=== PATIENT | male | born 1945 | race Caucasian/White ===

== ENCOUNTER 2018-06-22 17:01 | Inpatient (IN) ==
[2018-06-22] MEDS ORDERED: ASPIRIN PO ONE (17:12)
--- NOTE | 2018-06-22 17:29 | ED EKG INTERP ---
This chart was entered by Anastasiia Sanches Scribe, acting as scribe for Rey Alexander MD. EKG Interpretation - EKG Time of EKG reading by physician:: 17:14 EKG Read and Signed by:: Rey Alexander EKG Interpretation (*Must complete 3 of following elements*): Abnormal Rate: 59 Rhythm: sinus bradycardia Comments: otherwise normal ECG Attestation - Physician/ ANNIKA Attestation The physician spent face to face time with patient:: No Advanced Practice Provider documentation review:: Supervising physician onsite and consulted in the evaluation and care of this patient. The physician did not have a face to face encounter with the patient. This chart was documented by the indicated scribe, (Anastasiia Sanches Scribe) and accurately reflects the services I performed and decisions made by me, Rey Alexander MD, as attested by the provider's signature.
--- NOTE | 2018-06-22 17:53 | Diag Imaging Result Doc PS360 ---
CHEST-2 VIEWS - 06/22/2018 INDICATION: CHEST PAIN COMPARISON: None FINDINGS: The lungs are normally expanded and clear. Heart size and mediastinal contours are normal. No pneumothorax or pleural effusion. IMPRESSION: Negative exam. Electronically signed by Mayito Caraballo 06/22/2018 5:51 PM
[2018-06-22 19:24] LABS: BASO# 0.11 X1000 (0.0-0.2); EOS# 0.16 X1000 (0.0-0.7); EOS% 1.5 % (0.0-10.0); HEMATOCRIT 45.3 % (42.0-52.0); HEMOGLOBIN 14.8 g/dL (14.0-18.0); IMM GRAN# 0.02 X1000 (0.0-0.04); IMM GRAN% 0.2 % (0.0-0.5); LYMPH# 4.59 X1000 (1.2-3.4); LYMPH% 42.5 % (20.5-51.1); MCH 30.6 PG (27-31); MCHC 32.7 g/dL (33-37); MCV 93.6 FL (81-99); MONO# 0.98 X1000 (0.11-0.59); MONO% 9.1 % (1.7-9.3); MPV 10.9 FL (7.4-10.4); NEUT# 4.95 X1000 (1.4-6.5); NEUT% 45.7 % (42.2-75.2); PLT 270 X1000 (130-400); RBC 4.84 XMIL (4.7-6.1); RDW 13.3 % (11.5-14.5); WBC 10.81 X1000 (4.8-10.8)
[2018-06-22 19:34] LABS: INR 0.93; PROTIME 13.2 Seconds (11.0-16.0)
[2018-06-22 19:35] LABS: PTT 34.4 Seconds (22.3-41.8)
[2018-06-22 19:37] LABS: D-DIMER 0.61 ug/mLFEU (0.0-0.52)
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
[2018-06-22 19:53] LABS: ALB/GLOB RATIO 1.4; ALBUMIN 4.4 g/dL (3.5-5.0); CALCIUM 9.5 mg/dL (8.8-10.2); CREATININE 1.2 mg/dL (0.7-1.2); POTASSIUM 4.4 mmol/L (3.5-5.1); TOTAL BILIRUBIN 0.37 mg/dL (0.20-1.00); TOTAL PROTEIN 7.6 g/dL (6.3-8.3)
[2018-06-22] MEDS ORDERED: NITROGLYCERIN TOP ONE (20:23)
[2018-06-22] MEDS ORDERED: ZOFRAN IV PRN (21:10)
[2018-06-22] MEDS ORDERED: LOVENOX SUBQ SCH (21:15)
--- NOTE | 2018-06-22 22:02 | Diag Imaging Result Doc PS360 ---
CT ANGIOGRM PULMONARY ARTERIES - 06/22/2018 INDICATION: sob,elevated d-dimer TECHNIQUE: Axial CT images were obtained after administering intravenous contrast. Coronal MIP images were generated. COMPARISON: None FINDINGS: There is no pulmonary embolism. There is mild to moderate calcification of the aortic valve cusps. Heart size is normal with no pericardial effusion. Upper abdominal images are normal. The lungs are clear. There are moderate degenerative changes of the spine. No acute or suspicious bony lesion. IMPRESSION: Negative exam. This exam was performed using automated exposure control, adjustment of mA or kV according to patient size, and/or use of iterative reconstruction technique Electronically signed by Mayito Caraballo 06/22/2018 10:00 PM
[2018-06-23 07:19] LABS: BASO% 1.1 % (0.0-0.8); EOS# 0.24 X1000 (0.0-0.7); EOS% 2.8 % (0.0-10.0); HEMATOCRIT 43.1 % (42.0-52.0); IMM GRAN# 0.02 X1000 (0.0-0.04); IMM GRAN% 0.2 % (0.0-0.5); LYMPH# 2.95 X1000 (1.2-3.4); LYMPH% 33.9 % (20.5-51.1); MCH 30.6 PG (27-31); MCHC 32.5 g/dL (33-37); MCV 94.3 FL (81-99); MONO# 0.82 X1000 (0.11-0.59); MONO% 9.4 % (1.7-9.3); MPV 10.4 FL (7.4-10.4); NEUT# 4.57 X1000 (1.4-6.5); NEUT% 52.6 % (42.2-75.2); PLT 242 X1000 (130-400); RBC 4.57 XMIL (4.7-6.1); RDW 13.2 % (11.5-14.5)
--- NOTE | 2018-06-23 07:37 | HISTORY AND PHYSICAL ---
PRIMARY CARE PHYSICIAN: Dr. Cas Robledo. PRESENTING COMPLAINT: Chest pain for 2 weeks. HISTORY OF PRESENTING COMPLAINT: Mr. Benoit is a 72-year-old male with history of mildly elevated blood pressure every now and then but patient is not on any medications. Otherwise, he does not have any other chronic comorbidities. The patient has been having on and off midsternum chest pain radiating to the left for the past 2 weeks. According to Mr. Benoit, the pain is there almost all the time on the scale of about 4/10. However, whenever he exerts himself, the pain goes up to about 7/10. When he stops exerting himself, the pain goes down. He also took some Tylenol, which seems to have been helping some. For the past 3 days, the pain has been getting remarkably worse, so he came to the emergency department for evaluation. He recalls 1 episode where he felt dizzy and nauseated but did not vomit. Upon presenting to the emergency department patient was evaluated. Initial blood pressure was 182/86, pulse 64, respirations 20, temperature 98.4 degrees. We have been advised to evaluate and admit for chest pain workup. PAST MEDICAL HISTORY: Occasionally elevated blood pressure, but not on medications. PAST SURGICAL HISTORY: 1. Lumbar spine surgery. 2. Right elbow surgery. 3. Left hernia repair. FAMILY HISTORY: Significant for father at age 64 with myocardial infarction. A brother at age 74 with myocardial infarction. SOCIAL HISTORY: Patient is an active smoker, has been smoking about 7 cigarettes per day for over 40 years. Occasionally also drinks alcohol. Denies any illicit drug use. ALLERGIES: Penicillin that makes him break out in a rash. REVIEW OF SYSTEMS: A 14 point review of system was conducted with Mr. Benoit and unremarkable except what we have in the HPI. Specifically, he denies any cough. No shortness of breath. No sputum production. No diarrhea. No urinary symptoms. PHYSICAL EXAMINATION: VITAL SIGNS: Blood pressure is 156/80, pulse is 51, respiration is 16, temperature is 98.4 degrees. GENERAL: Mr. Benoit is a 72-year-old male, very well built and cooperative. He was in bed, in no distress. HEENT: Mucosa is pink and moist. Anicteric, acyanotic. Head is normocephalic and atraumatic. NECK: Supple. RESPIRATORY SYSTEM: There is good air entry bilaterally. No crepitations. No rhonchi. There is no accessory muscle use. CARDIOVASCULAR: Regular rate and rhythm. No murmurs, no rubs, no gallops. GI: Abdomen is soft. It is nontender. Bowel sounds are present. There is no hepatosplenomegaly. EXTREMITIES: No pedal edema. Distal pulses present. INTERPRETER AND TRANSLATOR: Patient is awake, alert, oriented. Executive function seems to be intact. Cranial nerves 2- 12 have been grossly examined and they are unremarkable. Motor is 5/5 in all extremities. Sensation is intact. PSYCHIATRIC: The patient is well dressed, good demeanor. Has good insight and judgment and very cooperative. LABORATORY DATA: WBC is 10.81, hemoglobin is 14.0, platelet count 270,000. Chemistry is also reviewed, completely normal. The initial troponin is 0.010. Pro-BNP is 261. IMAGING STUDIES: A chest x-ray shows normal lung expansion. Impression is negative exam. EKG shows sinus bradycardia. ASSESSMENT: Mr. Benoit is a 72-year-old male who presents with atypical type of chest pain. Risk factors include age and hypertension, which has not been diagnosed and treated appropriately and family history of myocardial infarctions. 1. Atypical chest pain. I think with his age and risk factors, it is reasonable to admit him and do cardiac risk stratification. We will also consult Cardiology, order serial troponins, EKG in the morning, echocardiogram and stress test in the morning. 2. Hypertension. According to Mr. Benoit, his blood pressure is usually on the upper side of the high normal values. On presentation it was 182/86. We are going to closely monitor this over here. He probably will need some form of blood pressure medications if it is persistently high. 3. Tobacco abuse. Patient has been counseled. 4. Overweight with BMI of 29.7. Weight loss has been counseled. So, in general, we are going to admit Mr. Benoit on the medical floor or to [facility] if there is a cardiac bed, under telemonitoring. We will do cardiac risk stratification and also consult Cardiology to evaluate him. All of these instructions have been discussed with Mr. Benoit. There was a female partner in the room with him. Both of them voiced understanding. All of their questions and concerns were addressed. cc: Lucio Faye MD
[2018-06-23 07:41] LABS: AGAP 12; ALB/GLOB RATIO 1.4; ALBUMIN 3.8 g/dL (3.5-5.0); ALKALINE PHOSPHATASE 67 U/L (32-122); BUN 16 mg/dL (8-22); CALCIUM 8.5 mg/dL (8.8-10.2); CHLORIDE 107 mmol/L (98-107); COSMO 285; CREATININE 1.1 mg/dL (0.7-1.2); ESTIMATED GFR > 60; GLUCOSE 106 mg/dL (70-104); GOT 15 U/L (10-34); GPT 14 U/L (10-44); MAGNESIUM 2.2 mg/dL (1.5-2.7); POTASSIUM 4.9 mmol/L (3.5-5.1); SODIUM 142 mmol/L (136-145); TCO2 23 mmol/L (25-35); TOTAL BILIRUBIN 0.45 mg/dL (0.20-1.00); TOTAL PROTEIN 6.6 g/dL (6.3-8.3)
[2018-06-23 08:01] LABS: CHOLESTEROL 150 mg/dL (0-200); HDL 48 mg/dL (35-55); LDL 82 mg/dL; TRIGLYCERIDES 98 mg/dL (39-160); VLDL 20 mg/dL
--- NOTE | 2018-06-23 08:04 | EKG Report ---
Test Performed on : 06/23/2018 07:51:34 AM Test Reason : chest pain Blood Pressure : / mmHG Vent. Rate : 052 BPM Atrial Rate : 052 BPM P-R Int : 184 ms QRS Dur : 084 ms QT Int : 424 ms P-R-T Axes : 053 -02 -15 degrees QTc Int : 394 ms Sinus bradycardia. Moderate voltage criteria for LVH, may be normal variant Borderline ECG When compared with ECG of 22-JUN-2018 17:14, (Unconfirmed) Loss of R wave in aVF, doubtful signifigance Confirmed by Divya GAO, Marlon Guerrero ([id number]) on 06/25/2018 10:28:53 AM
[2018-06-23] MEDS ORDERED: LEXISCAN ONE (08:39)
--- NOTE | 2018-06-23 09:44 | EKG Report ---
Test Performed on : 06/22/2018 5:14:57 PM Test Reason : CHEST PAIN Blood Pressure : / mmHG Vent. Rate : 059 BPM Atrial Rate : 059 BPM P-R Int : 176 ms QRS Dur : 074 ms QT Int : 382 ms P-R-T Axes : 027 010 -06 degrees QTc Int : 378 ms Sinus bradycardia. Otherwise normal ECG When compared with ECG of 01-NOV-2012 10:42, No significant change was found Confirmed by Divya GAO, Marlon Guerrero ([id number]) on 06/27/2018 11:45:55 AM
[2018-06-23] MEDS: PRILOSEC PO SCH (10:09)
[2018-06-23] MEDS ORDERED: LOVENOX 1 MG/KG SUBQ ONE (11:22)
--- NOTE | 2018-06-23 11:52 | CARDIOLOGY CONSULTATION ---
DATE: 06/23/2018 REASON FOR CONSULT: Cardiology was consulted for chest pain. HISTORY OF PRESENT ILLNESS: Mr. Benoit is a 72-year-old gentleman with history of hypertension. He has not been on any medications. He comes in with complaints of having intermittent, recurrent episodes of chest pain for the last 2 weeks. He says the chest pains wax and wane. Maximum pressure was 7/10 as he puts it. He came to the emergency room. Chest pain related to exertion. There is no orthopnea, paroxysmal nocturnal dyspnea. There are no palpitations. One episode of chest pain here, dizziness, as well as he had nausea but no vomiting. REVIEW OF SYSTEM: Fourteen point review of systems was done.GI system: There is no history of nausea, vomiting, diarrhea. There is no history of hematemesis or melena. Central nervous system: No focal weakness to suggest a CVA or TIA. system: There is no dysuria or hematuria. PAST MEDICAL HISTORY: 1. Occasional elevated blood pressure. 2. Lumbar spine surgery. 3. Right elbow surgery. 4. Left hernia repair. FAMILY HISTORY: His brother had a myocardial infarction at the age of 74. Father at 64 with a myocardial infarction. SOCIAL HISTORY: Patient is an active smoker. Has been smoking about 7 cigarettes a day for over the last 40 years. ALLERGIES: He is allergic to penicillin. PHYSICAL EXAMINATION: Vital Signs: Blood pressure was 156/80, pulse 50. Cardiovascular System: Normal jugular venous pressure. There is no thyromegaly. No carotid bruit. First and second heart sounds were heard. There was no S3 gallop. Respiratory System: Normal air entry. There are no crepitations or rhonchi. Abdomen: Soft, nontender. There was no guarding or rigidity. Bowel sounds were heard. Central nervous system: Alert and oriented. Was moving all 4 extremities. Extremities: Examination of extremities reveals no pedal edema. HEENT: Atraumatic, normocephalic. Pupils were equal and reacting to light. ASSESSMENT AND PLAN: Mr. Benoit is a 72-year-old gentleman with a history of smoking, comes with complaints of intermittent chest discomfort, as he puts it, waxing and waning in character with significant pressure, 7/10 when he came to the emergency room. He was ruled out for myocardial infarction by cardiac enzymes. His stress test revealed low-grade reversible defect in the inferolateral wall. There was a fixed defect noted in the inferior wall. Given his ongoing symptoms suggestive of unstable angina given his waxing and waning features, I have recommended that he undergo a left heart catheterization. Risks, benefits, and alternatives were explained. Patient will be set up for a left heart catheterization in the morning. We will start him on aspirin, Ranexa 500 mg twice daily, Lopressor 25 mg b.i.d., and the Lovenox 1 mg/kg subcutaneous twice daily. Thank you for the consult. We will follow hospital course. cc: Nitin Thornton MD
[2018-06-23] MEDS ORDERED: TYLENOL PO PRN (13:47)
[2018-06-23] MEDS: RANEXA PO SCH ×2 (13:58→20:53)
[2018-06-23] MEDS: LOPRESSOR PO SCH ×2 (13:58→20:53)
[2018-06-23] MEDS: ASPIRIN PO SCH (13:58)
[2018-06-23] MEDS: LOVENOX SUBQ SCH ×2 (13:58→22:56)
--- NOTE | 2018-06-23 15:12 | Diag Imaging Result Document ---
PROCEDURE NAME: MYOCARDIAL PERF SCAN, STR/REST - 06/23/2018 LEXISCAN SESTAMIBI INTERPRETATION: SUMMARY: The patient was administered 14.9 mCi of technetium-99m labeled sestamibi after which resting cardiac images were obtained. The patient was subsequently administered Lexiscan 0.4 mg intravenously after which the heart rate went from 50 beats per minute to 76 beats per minute and the blood pressure went from 160/78 to 168/83. With Lexiscan, the patient reported very transient and very mild chest discomfort. Following the administration of Lexiscan, the patient was administered 43.2 mCi of technetium-99m sestamibi after which gated stress cardiac images were obtained. Baseline ECG demonstrated sinus bradycardia. With Lexiscan there were no diagnostic ST-segment changes. SPECT images were reconstructed in the short, horizontal and vertical long axis. Review of these images demonstrated mildly diminished activity in the inferior wall on stress images which appears similar on resting images. No significant reversibility is evident. Gated images demonstrate a calculated left ejection fraction of 55% with symmetrical wall motion/thickening. CONCLUSIONS: 1. Adequate response to Lexiscan. 2. Clinically negative for chest pain. Adequate response to Lexiscan. 3. Clinically, the patient reported very brief and very transient atypical chest discomfort with Lexiscan. 4. Electrocardiographically, there were no diagnostic ST segment changes on ECG following administration of Lexiscan. 5. Lexiscan sestamibi images demonstrate fixed mildly diminished activity in the inferior wall with corresponding preserved regional wall motion most consistent with diaphragm attenuation artifact. There is no scintigraphic evidence of inducible myocardial ischemia. Normal left ventricular systolic function demonstrated. cc: MD Lucio Durham MD
--- NOTE | 2018-06-24 03:37 | PROGRESS NOTE ---
DATE: 06/23/2018 SUBJECTIVE: Mr. Benoit has not had any further pain while he is here in the hospital, but he has had chest pain for 2 weeks. This is a 72-year-old followed by Dr. Cas Robledo in [place] with a history of mildly elevated blood pressure every now and then. The patient is not on any medication. The patient has had some midsternum and left-sided chest pain for over 2 weeks and seems to be related to exertion. The pain is almost at time on scale 4/10. However, when he exerts himself the pain goes up to 7/10. When he stops exerting himself the pain seems to go down. In the emergency department he was evaluated, blood pressure was 182/86, pulse 64 respirations 20. PAST SURGICAL HISTORY: 1. Lumbar spine surgery. 2. Right elbow surgery. 3. Left hernia repair. HOSPITAL COURSE: So, admitted with atypical chest pain. Cardiology has evaluated. He had a myocardial perfusion scan today, showed adequate response to Lexiscan. Clinically negative for chest pain. Had an adequate response to Lexiscan. Very brief transient atypical chest discomfort with Lexiscan. EKG no diagnostic ST-segment changes. The scan demonstrated fixed, mildly diminished activity in the inferior wall with corresponding preserved regional wall motion consistent with diaphragmatic attenuation. No scintigraphic evidence of inducible myocardial ischemia. Normal left ventricular function demonstrated. Cardiology felt that he has a history of smoking, complaints of intermittent chest pain, waxing waning and with exertion 7/10 in scale. He was ruled out of myocardial infarction. Stress test revealed a low grade reversible defect inferior lateral wall, fixed defect in the inferior wall. Given his ongoing symptoms suggests unstable angina, waxing and waning features. He is recommended for left heart catheterization. I think they will set that up. We will set him up for a left heart catheterization tomorrow morning. MEDICATIONS: He is on Ranexa 500 mg twice a day, Lopressor 25 mg b.i.d., Lovenox 1 mg/kg twice a day. He is taking aspirin 81 mg a day. He was given 325 yesterday. LABORATORY: Troponin less than 0.01. His creatine kinase was not measured. Electrolytes look good. Renal function looks good. cc: Preston Gaines MD
--- NOTE | 2018-06-24 07:18 | ECHO REPORT ---
ORDER DATE: 06/22/2018 MEASUREMENTS: Left ventricular end-diastolic diameter 4.0, septal thickness 1.3, aortic root 3.6, left atrium 3.6. SUMMARY: 1. Technical difficult study due to limited acoustic window quality. Intravenous echo contrast agent Definity was utilized to enhance endocardial definition. 2. Aortic valve is sclerotic, but appears to open adequately on 2-dimensional images. Peak gradient across aortic valve is 27 mmHg with a mean gradient of 14 mmHg. Calculated aortic valve area by Doppler is greater than 2.0 cm sq. Minimal aortic valve stenosis suggested. There is [id number] aortic regurgitation. Mitral, tricuspid, and pulmonic valves are without evidence of structural abnormality with trace mitral regurgitation and trace pulmonic insufficiency. The aortic root is normal size. 3. Normal left ventricular chamber size with mild concentric left ventricular hypertrophy is suggested. Estimated left ventricular ejection fraction appears to be approximately 55%. No regional wall motion abnormalities are evident. Doppler suggests grade 1 left ventricular diastolic dysfunction. Left atrium, right atrium, and right ventricle are normal size with grossly preserved right ventricular systolic function. 4. No pericardial effusion. 5. Appearance of inferior vena cava suggests normal central venous pressure. CONCLUSIONS: 1. Technically difficult study. 2. Aortic valve sclerosis with minimal stenosis and [id number] aortic regurgitation. 3. Estimated left ejection fraction approximately 55%. 4. Mild concentric left ventricular hypertrophy suggested with grade 1 left ventricular diastolic dysfunction suggested. cc: MD Lucio Durham MD
[2018-06-24 07:38] VITALS: BP 128/59
[2018-06-24 07:38] LABS: MCV 94.1 FL (81-99); MPV 10.5 FL (7.4-10.4); RDW 13.3 % (11.5-14.5)
[2018-06-24 07:49] LABS: HEMATOCRIT 42.9 % (42.0-52.0); HEMOGLOBIN 14.3 g/dL (14.0-18.0); MCH 31.4 PG (27-31); MCHC 33.3 g/dL (33-37); RBC 4.56 XMIL (4.7-6.1); WBC 8.24 X1000 (4.8-10.8)
[2018-06-24 07:54] LABS: CALCIUM 8.9 mg/dL (8.8-10.2); CREATININE 1.3 mg/dL (0.7-1.2); MAGNESIUM 2.2 mg/dL (1.5-2.7); POTASSIUM 4.5 mmol/L (3.5-5.1)
[2018-06-24 07:55] LABS: INR 0.97; PROTIME 13.7 Seconds (11.0-16.0)
[2018-06-24] MEDS ORDERED: HEPARIN 1000 UNITS/NS 2,000 UNIT/1,000 ML IV.SOLN ONE (08:22)
[2018-06-24] MEDS ORDERED: NITROGLYCERIN ONE (08:25)
[2018-06-24] MEDS ORDERED: CLAVE PUMP SET NO FILTER 12260 ONE (09:03)
[2018-06-24] MEDS ORDERED: CLAVE TWINSITE 32 IN 11959 ONE (09:03)
[2018-06-24] MEDS ORDERED: NS 1,000 ML ONE (09:03)
[2018-06-24] MEDS ORDERED: DEMEROL ONE (09:15)
[2018-06-24] MEDS ORDERED: VERSED ONE (09:15)
[2018-06-24] MEDS: ASPIRIN PO SCH (12:48)
[2018-06-24] MEDS: LOPRESSOR PO SCH (12:48)
[2018-06-24] MEDS: RANEXA PO SCH (12:48)
[2018-06-24] MEDS: PRILOSEC PO SCH (12:48)
--- NOTE | 2018-06-24 13:59 | CARDIAC CATH REPORT ---
DATE: 06/24/2018 PROCEDURES PERFORMED: 1. Left heart catheterization. 2. Selective bilateral coronary arteriography. 3. Left ventriculography. 4. Opacification of the ascending aorta, ascending aortogram. 5. Opacification of right femoral artery/deployment of AngioSeal device. HISTORY: Mr. Benoit is a 72-year-old male who presented to the hospital with chest pains. He has several risk factors for coronary heart disease. His stress test showed a fixed anterior defect. Echocardiogram showed mild degree of aortic stenosis. Because of his presentation and his multiple risk factors, Dr. Thornton recommended left heart catheterization for definitive diagnosis. The benefits, risks, and complications were discussed. The patient understood and requested to proceed. DESCRIPTION OF PROCEDURE: The patient came into the cardiac cardiac catheterization technician in the fasting state. The right groin was prepped and draped in a sterile fashion, anesthetized with lidocaine. A 6-Upper Sorbian sheath was placed in the right femoral artery by following the modified Seldinger technique. Using 6-Upper Sorbian, 4 left and right Guy catheters, the left and right coronary arteries were sequentially opacified in multiple projections. Using the right Guy catheter, I opacified the aortic root in 2 projections because of the observation of dense calcification of the aortic valve suggesting aortic stenosis. Then using a straight-tipped guidewire, the aortic valve was negotiated, and left ventricular chamber was opacified after measuring left ventricular pressure. The ventricle was opacified in HUNGARIAN and KNOX projections. Then the right Guy catheter was pulled back from the right ventricle into the ascending aorta. A gradient was documented between the left ventricle and the ascending aorta. Then the right Guy catheter was removed, the sheath was flushed. Right femoral artery opacified, and then Angio-Seal device was deployed successfully. SUMMARY OF HEMODYNAMIC FINDINGS: Central aortic pressure was 143/65. Left ventricular pressure 149/7. The mean central aortic pressure was 94. Final central aortic pressure was 139/9. Final central aortic pressure 127/54. There was a 12 mm peak to peak gradient between the left ventricle and the ascending aorta. That would suggest mild degree of aortic stenosis. SUMMARY OF THE ANGIOGRAPHIC FINDINGS: 1. Left ventricle. The left ventriculogram in the 30 degree KNOX projection and 60 degree HUNGARIAN projection reveals preservation of the left ventricular ejection fraction estimated at 55% to 60%. No mitral regurgitation was noted. No wall motion abnormality was noted. 2. Ascending aortogram/aortic root. The aortic root is not dilated. The aortic valve is calcified, and it appears to have restricted opening. There was 1+ of aortic regurgitation noted. CORONARY ARTERIES: 1. Left main coronary artery. The left main coronary artery appears to be anatomically normal. It divides into LAD and circumflex. 2. Left anterior descending coronary artery. This vessel shows minimal irregularities in midsection. It gives rise to a major diagonal branch that shows very minimal irregularities. 3. Circumflex. The circumflex is a nondominant system and gives rise to a large lateral branch. Then it gives rise to a A-V branch which in turn gives rise to a small obtuse marginal vessel. The circumflex gives rise to a sinus lynda branch. No critical lesions noted in the circumflex system. 4. Right coronary artery. The right coronary artery shows a proximal 30% to 40 % stenosis. The right coronary artery shows some ectasia in its midsection and then very mild irregularity in its mid to distal segment. No critical lesions are noted in the distal segment of the right coronary artery, and this vessel divides into the posterior descending branch which is good caliber and the posterolateral ventricular vessel. The right coronary artery is free of any critical obstruction. OPACIFICATION OF RIGHT FEMORAL ARTERY: The right femoral artery is anatomically normal, and Angio- Seal device was deployed successfully, achieving excellent hemostasis. SUMMARY: This study shows: 1. Mild aortic stenosis with a peak to peak gradient of 12 mmHg. 2. Normal LVEDP. 3. Normal left ventricular systolic function. 4. Calcification of aortic valve with mild degree of aortic regurgitation. No dilatation of aortic root. 5. Mild coronary artery disease with minimal irregularities of the LAD and its diagonal branch and a 30% to 40% plaque in the proximal right coronary artery at its ostium. 6. Unremarkable right femoral artery with successful deployment of Angio-Seal device. RECOMMENDATIONS: Based on the findings, the patient is recommended to pursue medical therapy. He will be followed at the office by Dr. Thornton and his primary doctor. The patient tolerated this procedure very well. cc: Aristeo Gayle MD [facility]ITAL[facility]ley
--- NOTE | 2018-06-24 14:06 | DISCHARGE SUMMARY ---
ADMISSION DATE: 06/22/2018 DISCHARGE DATE: 06/24/2018 HISTORY OF PRESENT ILLNESS/HOSPITAL COURSE: This is a 72-year-old, male with history of mildly elevated blood pressure every now and then but he is not on any medication. Does not have any chronic comorbidities that we know of. The patient has been having on and off midsternal chest pain more on the left side and seems to intensify when he is working to be about a 4/10 scale, when he exerts himself it goes up to 7/10. It has been going on for a while. We admitted him. The enzymes are negative and we performed a Lexiscan GXT which was unremarkable. It was clinically negative exam. There were no diagnostic ST segments. Lexiscan system perfusion images demonstrated fixed mildly diminished activity in the inferior wall corresponding to preserve regional wall most consistent with diaphragmatic attenuation artifact but because of his history and new onset, felt he would benefit from a left heart catheterization. Left heart catheterization was performed and Cardiology reported that he had no significant coronary artery disease. He also had an echocardiogram done on 06/22/2018. Technically difficult study. Aortic valve sclerosis, minimal stenosis, mild to moderate aortic regurgitation. Estimated ejection fraction 55%. So plan to let the patient go home. DISCHARGE MEDICATIONS: He is on not on any at home so no medications. PLAN: Follow up with his primary care. cc: Preston Gaines MD MTDD
--- NOTE | 2018-06-24 14:36 | EKG Report ---
Test Performed on : 06/24/2018 2:12:14 PM Test Reason : S/P [facility] Blood Pressure : / mmHG Vent. Rate : 053 BPM Atrial Rate : 053 BPM P-R Int : 194 ms QRS Dur : 092 ms QT Int : 404 ms P-R-T Axes : 044 011 024 degrees QTc Int : 379 ms Sinus bradycardia. Otherwise normal ECG When compared with ECG of 23-JUN-2018 07:51, (Unconfirmed) Criteria for Inferior infarct are no longer present Nonspecific T wave abnormality has replaced inverted T waves in Inferior leads Confirmed by Divya GAO, Marlon Guerrero ([id number]) on 06/25/2018 4:27:22 PM
[2018-06-24] MEDS ORDERED: FLU VACCINE IM ONE (15:55)
== END 2018-06-24 16:21 | disposition home or self-care (01) | DRG 287 ==
LOC: ED 17:01 → EDIPHOLD 21:23 → SUATTDRO 21:23 → 3N 22:59 → 3S 06-24 12:23
PROVIDERS: ATTEND Emergency Medicine
CPT/HCPCS: 71020; 71046; 71275; 78452; 80048; 80053; 80061; 82550; 83735; 83880; 84443; 84484; 85025; 85027; 85379; 85610; 85730; 93005; 93010; 93017; 93306; 93458; 96372; 97162; 99285; A9270; A9500; C1760; C8929; J1644; J1650; J2175; J2250; J2785; J7030; Q9957; Q9967